=== PATIENT | female | born 1960 | race Caucasian/White ===

== ENCOUNTER 2019-02-12 15:49 | Emergency (ER) | payer BC ==
[~2019-02-12] VITALS: Ht 160 cm; Wt 72.7 kg
[2019-02-12 15:53] VITALS: BP 150/73; TEMP 99.1
[2019-02-12] MEDS ORDERED: AMOXICILLIN 8751 TAB PO (16:40)
[2019-02-12] MEDS ORDERED: PROAIR HFA0.09 MG/AC IH (16:40)
[2019-02-12] MEDS ORDERED: MEDROL 4MG DOSPA4 MG PO (16:40)
[2019-02-12] MEDS ORDERED: TUSS PO (16:40)
[2019-02-12] MEDS ORDERED: ASMANEX HF200 MCG/Ac IH (16:40)
[2019-02-12 16:42] VITALS: PULSE 93
[2019-02-12] MEDS ORDERED: BENICAR HCT 12.1 TAB PO (16:45)
[2019-02-12] MEDS ORDERED: CYMBALTA 20MG20 MG PO (16:45)
[2019-02-12] MEDS ORDERED: MIRAPEX 1MG PO (16:45)
[2019-02-12] MEDS ORDERED: VYVANSE60 MG PO (16:45)
[2019-02-12] MEDS ORDERED: IMITREX 25MG TA25 MG PO (16:47)
[2019-02-12] MEDS ORDERED: ULTRAM 50MG TAB50 MG PO (16:47)
== END 2019-02-12 16:53 | disposition home or self-care (01) ==
LOC: COL.ER 15:49
DX: J01.90 Acute sinusitis, unspecified (principal); J20.9 Acute bronchitis, unspecified; I10 Essential (primary) hypertension; J45.909 Unspecified asthma, uncomplicated; F32.9 Major depressive disorder, single episode, unspecified; Z90.710 Acquired absence of both cervix and uterus; Z88.2 Allergy status to sulfonamides; F90.9 Attention-deficit hyperactivity disorder, unspecified type